=== PATIENT | female | born 1965 | race Two or more races ===

== ENCOUNTER 2024-03-24 16:45 | Emergency (ER) | payer SELFPAY ==
[~2024-03-24] VITALS: Ht 157.5 cm; Wt 68.2 kg
[2024-03-24 16:56] VITALS: BP 163/83; PULSE 90; RESP 18; TEMP 98.7; O2SAT 99
[2024-03-24] MEDS ORDERED: ATOR10TA PO (17:00)
[2024-03-24] MEDS ORDERED: LISI-894 PO (17:00)
[2024-03-24 17:10] LABS: COVID AG,FIA SOURCE NASAL SWAB
[2024-03-24 17:29] LABS: INFLUENZA TYPE A NEGATIVE FOR TYPE A (NEGATIVE); INFLUENZA TYPE B NEGATIVE FOR TYPE B (NEGATIVE)
[2024-03-24 17:31] LABS: SARS-COV2 (COVID) ANTIGEN,FIA Negative (Negative)
== END 2024-03-24 21:08 | disposition left against medical advice (07) ==
LOC: EMS 16:45
DX: R51.9 Headache, unspecified (principal); R05.9 Cough, unspecified; R03.0 Elevated blood-pressure reading, without diagnosis of hypertension; Z20.822 Contact with and (suspected) exposure to COVID-19; Z53.21 Procedure and treatment not carried out due to patient leaving prior to being seen by health care provider
CPT/HCPCS: 87804